=== PATIENT | male | born 1940 | race Caucasian/White ===

== ENCOUNTER → 2019-03-21 | Outpatient (CLI) | payer MEDICARE ==
[~2019-03-21] MED LIST: ASPI-515 PO; HYDR-3237 PO; HYDR-3240 PO; LOSA25TA2 PO; LOSA25TA25 PO; LOSARTAN PO; METO25TA35 PO; METO50TA4 PO; ONDA4TAB10 PO; OXYC-302 PO; POLY17PO5 PO; REGADENOSON 0.4 MG/5 ML SYRINGE ONE; ROSU20TA2 PO
== END | disposition home or self-care (01) ==
LOC: CFH 08:41
PROVIDERS: ATTEND Internal Medicine Cardiovascular Disease
DX: I21.19 ST elevation (STEMI) myocardial infarction involving other coronary artery of inferior wall (principal); I34.0 Nonrheumatic mitral (valve) insufficiency; I25.10 Atherosclerotic heart disease of native coronary artery without angina pectoris; I25.5 Ischemic cardiomyopathy
CPT/HCPCS: 78452; 93017; A9502; J2785

== ENCOUNTER 2019-10-12 11:37 | Outpatient (CLI) | payer MEDICARE ==
[~2019-10-12 11:37] MED LIST changes: -REGADENOSON 0.4 MG/5 ML SYRINGE ONE
== END 2019-10-12 23:59 | disposition home or self-care (01) ==
LOC: CFH 11:37
PROVIDERS: ATTEND Nurse Practitioner Family
DX: J98.4 Other disorders of lung (principal); I34.0 Nonrheumatic mitral (valve) insufficiency; I25.10 Atherosclerotic heart disease of native coronary artery without angina pectoris; I25.2 Old myocardial infarction; I25.5 Ischemic cardiomyopathy; I10 Essential (primary) hypertension; E78.2 Mixed hyperlipidemia
CPT/HCPCS: 71046

== ENCOUNTER → 2020-12-24 | Outpatient (CLI) | payer MEDICARE ==
[~2020-12-24] MED LIST changes: -ASPI-515 PO; +ASPI-963 PO; +HYDR-1067 PO; -HYDR-3240 PO; -OXYC-302 PO; +OXYC1TAB14 PO
== END | disposition home or self-care (01) ==
LOC: CFH 10:47
PROVIDERS: ATTEND Family Medicine
DX: R05 Cough (principal)
CPT/HCPCS: 71046

== ENCOUNTER 2021-02-03 11:02 | Day surgery (SDC) | payer MEDICARE ==
[~2021-02-03] VITALS: Ht 177.8 cm; Wt 86.7 kg
[~2021-02-03 11:02] MED LIST changes: -HYDR-1067 PO; +HYDR-2214 PO
[2021-02-03] MEDS ORDERED: CHLORHEXIDINE 15 ML UDC PO ONE (11:30)
[2021-02-03 11:52] VITALS: BP 165/79
[2021-02-03] MEDS ORDERED: AMLO-150 PO (11:58)
[2021-02-03] MEDS ORDERED: ASPI81TA45 PO (11:58)
[2021-02-03] MEDS ORDERED: METO50TA82 PO (11:58)
[2021-02-03] MEDS ORDERED: VALS80TA3 PO (11:58)
[2021-02-03] MEDS ORDERED: LACTATED RINGERS 1,000 ML IV SCH (12:00)
[2021-02-03] MEDS ORDERED: BUPIVACAINE/PF 0.5% ONE (12:52)
[2021-02-03] MEDS ORDERED: EPINEPHRINE 1 MG/ML, 1ML ONE (12:52)
[2021-02-03] MEDS ORDERED: FENTANYL PF 100 MCG/2ML ONE (14:15)
[2021-02-03] MEDS ORDERED: LIDOCAINE-MPF 2% ,5ML ONE (14:16)
[2021-02-03] MEDS ORDERED: LABETALOL 5MG/ML, 20ML IV PRN (14:30)
[2021-02-03] MEDS ORDERED: FENTANYL PF 100 MCG/2ML IV PRN (14:30)
[2021-02-03] MEDS ORDERED: ONDANSETRON 2MG/ML, 2ML IVPush PRN (14:30)
[2021-02-03] MEDS ORDERED: OXYcodone 5 MG/5 ML ORAL.SOL UDC PO PRN (14:30)
[2021-02-03] MEDS ORDERED: PROMETHAZINE 25 MG/ML, 1ML IVPush PRN (14:30)
[2021-02-03] MEDS ORDERED: HYDROmorphone 1 MG/ML, 1ML INJ IVPush PRN (14:30)
[2021-02-03] MEDS ORDERED: hydrALAzine 20 MG/ML, 1ML IV PRN (14:30)
[2021-02-03] MEDS ORDERED: EPHEDRINE 50 MG/ML, 1ML IVPush PRN (14:30)
[2021-02-03] MEDS ORDERED: DEXAMETHASONE 4 MG/ML, 1ML ONE (14:45)
[2021-02-03] MEDS ORDERED: SUCCINYLCHOLINE 20 MG/ML, 10ML ONE (14:45)
[2021-02-03] MEDS ORDERED: PROPOFOL 10 MG/ML, 20ML ONE (14:45)
[2021-02-03] MEDS ORDERED: ONDANSETRON 2MG/ML, 2ML ONE (14:45)
[2021-02-03] MEDS ORDERED: CEFAZOLIN 1,000 MG ONE (14:45)
[2021-02-03] MEDS ORDERED: KETOROLAC 30 MG/1 ML ONE (15:05)
[2021-02-03] MEDS ORDERED: HYDROmorphone 1 MG/ML, 1ML INJ ONE (15:11)
[2021-02-03] MEDS ORDERED: EPHEDRINE 50 MG/ML, 1ML ONE (15:18)
[2021-02-03] MEDS ORDERED: HYDR-2214 PO (17:08)
== END 2021-02-03 17:30 | disposition home or self-care (01) ==
LOC: OUT 11:02
PROVIDERS: ATTEND Surgery
DX: R22.0 Localized swelling, mass and lump, head (principal); C43.4 Malignant melanoma of scalp and neck; I12.9 Hypertensive chronic kidney disease with stage 1 through stage 4 chronic kidney disease, or unspecified chronic kidney disease; N18.9 Chronic kidney disease, unspecified; I25.10 Atherosclerotic heart disease of native coronary artery without angina pectoris; E78.5 Hyperlipidemia, unspecified; Z20.822 Contact with and (suspected) exposure to COVID-19; Z79.82 Long term (current) use of aspirin; Z79.899 Other long term (current) drug therapy; Z87.891 Personal history of nicotine dependence; Z95.1 Presence of aortocoronary bypass graft; Z98.890 Other specified postprocedural states
CPT/HCPCS: 11623; 12041; 87635; 88305; 93005; J0171; J0330; J0690; J1100; J1170; J1885; J2405; J2704; J3010; J7120

== ENCOUNTER → 2021-04-02 | Outpatient (CLI) | payer MEDICARE ==
[~2021-04-02] MED LIST changes: +AMLO-150 PO; +ASPI81TA45 PO; +GADOTERATE 10 MMOL/20ML SYR ONE; +METO50TA82 PO; +VALS80TA3 PO
== END | disposition home or self-care (01) ==
LOC: CFH 08:34
PROVIDERS: ATTEND Internal Medicine
DX: C43.4 Malignant melanoma of scalp and neck (principal); G31.9 Degenerative disease of nervous system, unspecified
CPT/HCPCS: 70553; A9575

== ENCOUNTER → 2021-04-03 | Outpatient (CLI) | payer MEDICARE ==
[~2021-04-03] MED LIST changes: -GADOTERATE 10 MMOL/20ML SYR ONE
== END | disposition home or self-care (01) ==
LOC: PETCFH 08:48
PROVIDERS: ATTEND Internal Medicine
DX: C43.4 Malignant melanoma of scalp and neck (principal)
CPT/HCPCS: 78816; A9552

== ENCOUNTER 2021-04-30 07:35 | Day surgery (SDC) | payer MEDICARE ==
[~2021-04-30] VITALS: Ht 177.8 cm; Wt 85.1 kg
[2021-04-30 08:41] VITALS: BP 158/70
[2021-04-30] MEDS ORDERED: SODIUM CHLORIDE 0.9% 1,000 ML IV SCH (09:00)
[2021-04-30] MEDS ORDERED: CEFAZOLIN PMX 1GM/50ML 50 ML IV ONE (09:00)
[2021-04-30] MEDS ORDERED: FENTANYL PF 100 MCG/2ML ONE (09:40)
[2021-04-30] MEDS ORDERED: NALOXONE 1 MG/ML, 2ML ONE (09:40)
[2021-04-30] MEDS ORDERED: FLUMAZENIL 0.1 MG/1 ML, 5ML ONE (09:40)
[2021-04-30] MEDS ORDERED: MIDAZOLAM 1 MG/ML, 5ML ONE (09:40)
[2021-04-30] MEDS ORDERED: LIDOCAINE-MPF 1%, 5ML ONE (09:48)
[2021-04-30] MEDS ORDERED: LIDOCAINE 1%, 20ML ONE (09:48)
== END 2021-04-30 11:45 | disposition home or self-care (01) ==
LOC: RAD 07:35
PROVIDERS: ATTEND Internal Medicine Hematology & Oncology
DX: C43.4 Malignant melanoma of scalp and neck (principal); C77.0 Secondary and unspecified malignant neoplasm of lymph nodes of head, face and neck; I10 Essential (primary) hypertension; E78.5 Hyperlipidemia, unspecified; I25.10 Atherosclerotic heart disease of native coronary artery without angina pectoris; I25.2 Old myocardial infarction; Z79.82 Long term (current) use of aspirin; Z79.899 Other long term (current) drug therapy; Z87.891 Personal history of nicotine dependence; Z95.5 Presence of coronary angioplasty implant and graft; Z80.0 Family history of malignant neoplasm of digestive organs
CPT/HCPCS: 36561; 38505; 76937; 76942; 77001; 88305; 99156; 99157; C1788; J0690; J1642; J2250; J3010; J7030; J2310